=== PATIENT | male | born 1985 | race Caucasian/White ===

== ENCOUNTER 2023-04-02 18:39 | Emergency (ER) | payer SELFPAY ==
[~2023-04-02] VITALS: Ht 172.7 cm; Wt 72.6 kg
[2023-04-02 19:15] VITALS: BP 114/73; PULSE 61; RESP 18; TEMP 97; O2SAT 98
[2023-04-02] MEDS ORDERED: KETOROLAC 30 MG/ML VIAL IM ONE (19:30)
[2023-04-02] MEDS ORDERED: IBUP-2213 PO (20:37)
[2023-04-02 20:55] VITALS: BP 114/73; PULSE 61; RESP 18; TEMP 97; O2SAT 98
== END 2023-04-02 20:55 | disposition home or self-care (01) ==
LOC: MED 18:39
DX: M79.662 Pain in left lower leg (principal); Z79.899 Other long term (current) drug therapy
CPT/HCPCS: 73590; 99283; J1885